=== PATIENT | female | born 1950 | race Caucasian/White ===

== ENCOUNTER → 2021-07-20 10:32 | Outpatient (BNVA) | payer MEDICARE, MEDICAID, SELFPAY | PROVIDERS: Family Provider Nurse Practitioner Family; PCP Family Medicine; Visit Provider Family Medicine | DX: R53.83 Other fatigue (principal); K21.9 Gastro-esophageal reflux disease without esophagitis; I10 Essential (primary) hypertension; H00.14 Chalazion left upper eyelid; M89.49 Other hypertrophic osteoarthropathy, multiple sites; J45.20 Mild intermittent asthma, uncomplicated | CPT/HCPCS: 80053; 80061; 84439; 84443; 85025 ==

== ENCOUNTER 2021-10-28 12:20 | Emergency (ER) | payer MEDICARE, MEDICAID, SELFPAY ==
[2021-10-28] VITALS (11 sets, daily range): BP systolic 122–151; BP diastolic 79–89; PULSE 87–100; RESP 15–20; TEMP 37.1; O2SAT 93–97; BMI 27.2
--- NOTE | 2021-10-28 12:27 | ECG_ITS ---
[facility] Test Date: 2021-10-28 Pat Name: Lisa Turner Department: Room: Gender: Female Online Merchant: : 1950 Requested By: Francheska Hector Order Number: [id number] Dorene MD: Juli Portillo M.D. Measurements Intervals [place] Rate: 83 P: 55 WV: 153 QRS: -29 QRSD: 85 T: 17 QT: 348 QTc: 411 Interpretive Statements SINUS RHYTHM BORDERLINE LEFT AXIS DEVIATION [QRS AXIS < -20] MODERATE ST DEPRESSION [0.05+ mV ST DEPRESSION] No previous ECG available for comparison Electronically Signed On 10-29-2021 20:35:20 CALL CENTER TEAM LEADER by Juli Portillo M.D. [id number]
--- NOTE | 2021-10-28 12:27 | XR_ITS ---
WS: [id number] Portable AP upright chest, 10/28/2021 Clinical Data: dyspnea, cough Comparison: None. Findings: No nodules, masses or effusions are seen. The heart is normal. The pulmonary vascularity is not increased. No pneumonia or pneumothorax is seen. The aortic arch and descending thoracic aorta a re tortuous. XR/XR chest 1V portable [id number] Impression: Atherosclerosis.
[2021-10-28 13:24] LABS: Basophils # 0.1 10^3/uL (0.0-0.1); Basophils % 0.9 %; Eosinophils # 0.8 10^3/uL (0.0-0.8); Eosinophils % 11.5 %; Hemoglobin 14.2 g/dL (11.5-15.3); Lymphocytes # 1.5 10^3/uL (0.8-4.8); Lymphocytes % 22.4 %; Mean Corpuscular HGB Conc 32.3 g/dL (30.0-36.0); Mean Corpuscular Hemoglobin 29.8 pg (28.0-34.0); Mean Corpuscular Volume 92.4 fl (81-99); Mean Platelet Volume 9.1 fL (7.4-10.4); Monocytes # 0.8 10^3/uL (0.2-0.9); Monocytes % 11.4 %; Neutrophils # 3.65 10^3/uL (1.8-7.7); Neutrophils % 53.4 %; Nucleated Red Blood Cells % 0 %; Platelet Count 266 10^3/cmm (130-400); Red Blood Count 4.76 10^6/uL (4.1-5.3); Red Cell Distribution Width 13.7 % (12.1-15.1); White Blood Count 6.8 10^3/uL (4.0-10.0)
--- NOTE | 2021-10-28 13:39 | W.ED.GENADLT ---
HPI - General Adult General: Chief complaint: Shortness of Breath/Dyspnea Stated complaint: SOB/ COUGH Time Seen by Provider: 10/28/21 12:26 History of Present Illness: HPI narrative: Patient is a 70-year-old female with history of asthma, prior TIA presented to the emergency room with complaints of 2 days of worsening wheezing despite using nebulizer at home. Patient tells me that she has mild sore throat and cough for last 2 days. Denies any fever/chills, generalized weakness, muscle pain, diarrhea/melena/hematochezia. No other focal complaints include neurological complaints, urinary complaints, chest pain, or shortness of breath. Onset: 2 days ago Duration:2 days Location:home Severity:moderate Associated symptoms: Reports dyspnea; Deny chest pain, nausea, rash, palpitations or vomiting Review of Systems Const: Denies: fever(s) or chills Eyes: Denies: change in vision ENMT: Denies: mouth pain Card: Denies: chest pain or palpitations Resp: Reports: dyspnea, non-productive cough and wheezing GI: Denies: abdominal pain, nausea, vomiting or diarrhea : Denies: dysuria Musc: Denies: extremity pain Skin/Breast: Denies: rash or new lesions Neuro: Denies: weakness in extremities Psych: Reports: other (Normal mood) Reggie/Lymph: Denies: easy bruising PFSH ED PFSH: Medical History DJD (degenerative joint disease) GERD (gastroesophageal reflux disease) Hypertension Social History Alcohol intake: never Physical Exam Const: COMMON NORMALS: alert HENMT: COMMON NORMALS: atraumatic HEAD & SCALP: atraumatic MOUTH: moist mucous membranes not abnormal Eye: COMMON NORMALS: EOMs intact bilaterally and conjunctivae normal CONJUNCTIVA: Yes conjunctivae normal Neck/C-Spine: COMMON NORMALS: full ROM and supple Resp: COMMON NORMALS: normal respiratory effort AUSCULTATION: other (wheezing b/l) Cardio: COMMON NORMALS: regular rate RATE: regular rate GI: COMMON NORMALS: Soft to palpation and non-tender PALPATION: Yes Soft to palpation Extremity: COMMON NORMALS: full ROM Neuro: SENSORIUM/ORIENTATION: Yes alert MOTOR EXAM: Abnormal motor strength present and Other motor observations present (no focla motor deficits) Psych: COMMON NORMALS: speech normal SPEECH: Yes normal speech MOOD & AFFECT: Yes euthymic mood Course Vital Signs: Vital signs: Vital Signs Temperature 98.8 F 10/28/21 12:27 Pulse Rate 94 10/28/21 14:41 Respiratory Rate 20 H 10/28/21 14:41 Blood Pressure 122/84 10/28/21 14:11 Pulse Oximetry 95 10/28/21 14:41 MDM - General Adult MDM Narrative: Medical decision making narrative: 70-year-old female presents emergency room with complaints of wheezing bilaterally x2 days in setting of cough and sore throat despite nebulizer treatment at home. On exam, patient is satting at 95% with no increased work of breathing. Patient is noted to have wheezing bilaterally X-ray chest x-ray is focal finding. White count 6.8. At the present time, suspect the patient may have acute asthma exacerbation. RSV positive. Ova negative. Patient received breathing treatment with significant improvement symptoms. Patient received DuoNeb and prednisone in the emergency room with improvement in symptoms. Rx prednisone and DuoNeb as needed for wheezing symptoms. Disposition: Discharge. Patient counseled regarding diagnostic impression, treatment plan. Patient given ED strict return precautions to return for continuation, worsening, or development of new symptoms. Instructed to f/u w/ PCP regarding symptoms today. Patient verbalized understanding. Lab Data: Labs: Lab Results 10/28/21 10/28/21 10/28/21 13:00 13:18 13:18 WBC 6.8 10^3/uL 10^3/ uL (4.0-10.0) RBC 4.76 10^6/uL 10^6 /uL (4.1-5.3) Hgb 14.2 g/dL g/dL (11.5-15.3) Hct 44.0 % % (37.0-47.0) MCV 92.4 fl fl (81-99) MCH 29.8 pg pg (28.0-34.0) MCHC 32.3 g/dL g/dL (30.0-36.0) RDW 13.7 % % (12.1-15.1) Plt Count 266 10^3/cmm 10^3 /cmm (130-400) MPV 9.1 fL fL (7.4-10.4) Neut % (Auto) 53.4 % % Lymph % (Auto) 22.4 % % [place] % (Auto) 11.4 % % Eos % (Auto) 11.5 % % Baso % (Auto) 0.9 % % Neut # (Auto) 3.65 10^3/uL 10^3 /uL (1.8-7.7) Lymph # (Auto) 1.5 10^3/uL 10^3/ uL (0.8-4.8) [place] # (Auto) 0.8 10^3/uL 10^3/ uL (0.2-0.9) Eos # (Auto) 0.8 10^3/uL 10^3/ uL (0.0-0.8) Baso # (Auto) 0.1 10^3/uL 10^3/ uL (0.0-0.1) Nucleated RBC % (a uto) 0 % % Nucleated RBCs # 0.0 /100WBC /100W BC Sodium 140 mmol/L mmol/L (136-145) Potassium 4.0 mmol/L mmol/L (3.5-5.1) Chloride 104 mmol/L mmol/L (98-107) Carbon Dioxide 28 mmol/L mmol/L (22-29) Anion Gap 12.0 (5-19) BUN 7 mg/dL L mg/dL (8-23) Creatinine 0.6 mg/dL mg/dL (0.5-0.9) GFR Calculation 98.8 mL/min mL/mi n (90-130) Glucose 87 mg/dL mg/dL (65-115) Calculated Osmolal ity 287 mOsm/kg mOsm/ kg (285-295) Calcium 9.4 mg/dL mg/dL (8.5-10.5) Coronavirus 229E ( PCR) Not detected (NOT DETECT) RSV Type A (PCR) RSV Type B (PCR) SARS-CoV-2 (PCR) Not detected (NOT DETECT) 10/28/21 14:57 WBC RBC Hgb Hct MCV MCH MCHC RDW Plt Count MPV Neut % (Auto) Lymph % (Auto) [place] % (Auto) Eos % (Auto) Baso % (Auto) Neut # (Auto) Lymph # (Auto) [place] # (Auto) Eos # (Auto) Baso # (Auto) Nucleated RBC % (a uto) Nucleated RBCs # Sodium Potassium Chloride Carbon Dioxide Anion Gap BUN Creatinine GFR Calculation Glucose Calculated Osmolal ity Calcium Coronavirus 229E ( PCR) RSV Type A (PCR) Not detected (NOT DETECT) RSV Type B (PCR) Detected A (NOT DETECT) SARS-CoV-2 (PCR) Imaging Data^: Other Imaging: Radiologist's impression: [address] [id number] ReportSigned Patient: Lisa Turner #: [id number]: 1950cct#:[id number]/Sex: 70 / FADM Date: 10/28/21Loc: ERRoom/Bed:Attending Dr: Ordering Provider/Ordering MD: Francheska Hector MD Date of Service: 10/28/21 Procedure(s): XR chest 1V portable [id number] Accession Number(s): [id number] Report Number: [id number] WS: [id number] Portable AP upright chest, 10/28/2021 Clinical Data: dyspnea, cough Comparison: None. Findings: No nodules, masses or effusions are seen. The heart is normal. The pulmonary vascularity is not increased. No pneumonia or pneumothorax is seen. The aortic arch and descending thoracic aorta are tortuous. XR/XR chest 1V portable [id number] Impression: Atherosclerosis. Dictated By:Luba Sepulveda MDSigned By:Luba Sepulveda MDSigned Date/Time:10/28/21 1256DD/ 1255 Discharge Plan Discharge Patient Disposition: Home Clinical Impression: Wheezing, Acute asthma exacerbation Condition: Stable Prescriptions: New albuterol sulfate 90 mcg/actuation HFA aerosol inhaler 2 inh inhalation Q4H PRN (Reason: shortness of breath or wheezing) 5 Days Qty: 6.7 RF: 0 prednisone 50 mg tablet 50 mg PO DAILY 5 Days RF: 0 No Action albuterol sulfate [Ventolin HFA] 90 mcg/actuation HFA aerosol inhaler 2 inh inhalation Q6H PRN (Reason: sob) Qty: 8.5 RF: 6 albuterol sulfate 2.5 mg /3 mL (0.083 %) solution for nebulization 2.5 mg inhalation QID PRN (Reason: sob) Qty: 180 RF: 11 cetirizine [Zyrtec] 10 mg tablet 10 mg PO DAILY PRN (Reason: allergy) Qty: 90 RF: 3 fluticasone propionate 50 mcg/actuation spray,suspension 1 spray intranasal .at HS PRN (Reason: allergy symptoms) Qty: 16 RF: 11 omeprazole 20 mg capsule,delayed release(DR/EC) 20 mg PO DAILY Qty: 90 RF: 3 azithromycin [Zithromax Z-Connor] 250 mg tablet 250 mg PO DAILY 7 Days Qty: 7 RF: 0 prednisone 5 mg tablets,dose pack See Rx Instructions PO PER PKG DIR Qty: 21 RF: 0 carvedilol [Coreg] 3.125 mg tablet 3.125 mg PO BID Qty: 60 RF: 5 Discharge Orders: Discharge ED (Routine); Ordered 10/28/21 Ordered By: Francheska Hector Referrals: Konstantin Lawson DO [Primary Care Provider] - Discharge Diet: Advance as tolerated Discharge Activity: Resume usual activity Activity Restrictions/Additional Instructions: Come back to the emergency room if your symptoms worsen, have any shortness of breath, fever/chills, dehydration, inability tolerate p.o., any difficulty breathing, or any new or concerning complaints. Coding Level of Care Code ED Cryptographic Technician for Chg Fwd Exam Comprehensive
[2021-10-28 13:45] LABS: Blood Urea Nitrogen 7 mg/dL (8-23); Calcium 9.4 mg/dL (8.5-10.5); Carbon Dioxide 28 mmol/L (22-29); Chloride 104 mmol/L (98-107); Glomerular Filtration Rate 98.8 mL/min (90-130); Glucose 87 mg/dL (65-115); Osmolality Calculated 287 mOsm/kg (285-295); Sodium 140 mmol/L (136-145)
[2021-10-28] MEDS: ipratropium-albuterol 3 mL Neb INHALATION ×3 (14:23→15:38)
[2021-10-28 14:56] LABS: Adenovirus Not Detected (NOT DETECT); Chlamydia Pneumoniae Not Detected (NOT DETECT); Coronavirus 229E,HKU1,NL63,OC4 Not Detected (NOT DETECT); Human Metapneumovirus Not Detected (NOT DETECT); Human Rhinovirus/Enterovirus Not Detected (NOT DETECT); Influenza A Not Detected (NOT DETECT); Influenza A H1 Not Detected (NOT DETECT); Influenza A H1-2009 Not Detected (NOT DETECT); Influenza A H3 Not Detected (NOT DETECT); Influenza B Not Detected (NOT DETECT); Mycoplasma Pneumoniae Not Detected (NOT DETECT); Parainfluenza Virus Type 1 Not Detected (NOT DETECT); Parainfluenza Virus Type 2 Not Detected (NOT DETECT); Parainfluenza Virus Type 3 Not Detected (NOT DETECT); Parainfluenza Virus Type 4 Not Detected (NOT DETECT); Respiratory Syncytial Virus A Not Detected (NOT DETECT); Respiratory Syncytial Virus B Detected (NOT DETECT); SARS-COV-2 Not Detected (NOT DETECT)
[2021-10-28 14:58] LABS: Respiratory Syncytial Virus A Not Detected (NOT DETECT); Respiratory Syncytial Virus B Detected (NOT DETECT); Results from Genmark
== END 2021-10-28 15:52 | disposition home or self-care (01) ==
PROVIDERS: Emergency Provider Emergency Medicine; PCP Family Medicine
DX: J45.901 Unspecified asthma with (acute) exacerbation (principal); K21.9 Gastro-esophageal reflux disease without esophagitis; I10 Essential (primary) hypertension
CPT/HCPCS: 71045; 80048; 85025; 87635; 87801; 93005; 94640; 96374; 99284; J2930

== ENCOUNTER → 2021-12-21 11:36 | Outpatient (BNVA) | payer MEDICARE, MEDICAID, SELFPAY | PROVIDERS: PCP Family Medicine; Visit Provider Family Medicine | DX: J32.9 Chronic sinusitis, unspecified (principal); J40 Bronchitis, not specified as acute or chronic; J45.20 Mild intermittent asthma, uncomplicated | CPT/HCPCS: 71046 ==

== ENCOUNTER → 2022-02-19 10:00 | Outpatient (BNVA) | payer MEDICARE, MEDICAID, SELFPAY | PROVIDERS: PCP Family Medicine; Visit Provider Internal Medicine Pulmonary Disease | DX: J45.20 Mild intermittent asthma, uncomplicated (principal); K21.9 Gastro-esophageal reflux disease without esophagitis; I10 Essential (primary) hypertension; R06.02 Shortness of breath | CPT/HCPCS: 36415; 82785; 85025; 86003; 99204 ==

== ENCOUNTER → 2022-04-02 09:15 | Outpatient (BNVA) | payer MEDICARE, MEDICAID, SELFPAY | PROVIDERS: PCP Family Medicine; Visit Provider Internal Medicine Pulmonary Disease | DX: J45.20 Mild intermittent asthma, uncomplicated (principal); K21.9 Gastro-esophageal reflux disease without esophagitis; I10 Essential (primary) hypertension | CPT/HCPCS: 99214 ==

== ENCOUNTER 2022-09-13 21:18 | Emergency (ER) | payer MEDICARE, MEDICAID, SELFPAY ==
[2022-09-13 21:20] VITALS: BP 150/93; PULSE 84; RESP 17; TEMP 36.8; O2SAT 99; BMI 31.3
--- NOTE | 2022-09-13 21:28 | ECG_ITS ---
[facility] Test Date: 2022-09-13 Pat Name: Lisa Turner Department: Room: Gender: Female Drying Machine Receiver: : 1950 Requested By: Serafin Johns Order Number: [id number] Dorene MD: Kaushik Rajput M.D. Measurements Intervals [place] Rate: 72 P: 49 AR: 160 QRS: -16 QRSD: 84 T: 18 QT: 398 QTc: 438 Interpretive Statements SINUS RHYTHM MODERATE ST DEPRESSION [0.05+ mV ST DEPRESSION] Nonspecific T wave changes Compared to ECG 10/28/2021 12:44:13 No significant changes Electronically Signed On 09-14-2022 20:34:09 BOOKING OFFICER by Kaushik Rajput M.D. [id number]
--- NOTE | 2022-09-13 21:38 | ED_ITS ---
HPI - Nausea/Vomiting/Diarrhea General: Chief complaint: Nausea/Vomiting/Diarrhea Stated complaint: nausea, vomiting, diarrhea Time Seen by Provider: 09/13/22 21:20 Source: patient and EMS Mode of arrival: EMS Limitations: no limitations History of Present Illness: 71-year-old female states that since 6:30 PM she has been having vertigo. She states its much worse with any movement she states she has had nausea and vomiting along with some diarrhea. States that she is given Zofran in route and has had some improvement does improve with rest as well. Denies any headache denies any weakness in any extremities denies any change in vision. Associated nausea: Yes Associated symtoms: Reports nausea; Denies chest pain or dysuria Review of Systems Const: Denies: fever(s), chills, body aches or change in appetite Eyes: Denies: blurry vision or eye discomfort ENMT: Denies: throat pain or dental pain Card: Denies: chest pain Resp: Denies: dyspnea GI: Reports: nausea and vomiting : Denies: dysuria Musc: Denies: neck pain or back pain Skin/Breast: Denies: rash Neuro: Reports: vertigo Psych: Denies: depression Reggie/Lymph: Denies: easy bruising All/Imm: Denies: urticaria PFSH ED PFSH: Medical History DJD (degenerative joint disease) GERD (gastroesophageal reflux disease) Hypertension Social History Smoking and tobacco status: never smoked Second hand smoke exposure: Yes Alcohol intake: never Physical Exam Const: COMMON NORMALS: no acute distress, patient oriented x3 and healthy appearing HENMT: COMMON NORMALS: normocephalic and atraumatic HEAD & SCALP: normo cephalic and atraumatic Eye: COMMON NORMALS: Equal, round and reactive pupils present and EOMs intact bilaterally PUPIL: Yes Equal, round and reactive pupils present Neck/C-Spine: COMMON NORMALS: full ROM and supple Chest: COMMONS NORMALS: normal inspection of the chest and normal palpation of entire chest wall Resp: COMMON NORMALS: normal respiratory effort, No retractions, No use of accessory muscles and clear to auscultation bilaterally AUSCULTATION: clear to auscultation bilaterally Cardio: COMMON NORMALS: regular rate, regular rhythm and No murmurs present (Cardio) RATE: regular rate RHYTHM: regular rhythm GI: COMMON NORMALS: Normal to inspection, nondistended, normoactive bowel sounds present, Soft to palpation, non-tender and no masses PALPATION: Yes Soft to palpation Extremity: COMMON NORMALS: normal to inspection and full ROM Neuro: COMMON NORMALS: patient oriented x3, moves all extremities and no focal motor deficits Psych: COMMON NORMALS: mental status grossly normal, Normal thought process present and cooperative THOUGHT PROCESS: Normal thought process present Skin: COMMON NORMALS: no rashes or lesions noted and no wounds GENERAL SKIN EXAM: no rashes or lesions noted Course Vital Signs: Vital signs: Vital Signs Temperature 98.2 F 09/13/22 21:20 Pulse Rate 79 09/13/22 22:55 Respiratory Rate 16 09/13/22 22:55 Blood Pressure 125/75 09/13/22 22:55 Pulse Oximetry 99 09/13/22 22:55 Oxygen Delivery Me thod 09/13/22 21:20 MDM - Nausea/Vomiting/Diarrhea Medical Decision Making Patient presents here with vertigo likely peripheral in nature its resolved here with meclizine patient is able to ambulate without any difficulties she has been able to tolerate p.o. as well blood work is normal we will prescribe meclizine and Zofran for home she is to follow-up with her PCP and return if worsening she has no signs of a stroke. Lab Data 09/13/22 21:37 09/13/22 21:37 Laboratory Results WBC 12.0 10^3/uL (4.0-10.0) H 09/13/22 21:37 RBC 4.70 10^6/uL (4.1-5.3) 09/13/22 21:37 Hgb 13.9 g/dL (11.5-15.3) 09/13/22 21:37 Hct 43.5 % (37.0-47.0) 09/13/22 21:37 MCV 92.6 fl (81-99) 09/13/22 21:37 MCH 29.6 pg (28.0-34.0) 09/13/22 21:37 MCHC 32.0 g/dL (30.0-36.0) 09/13/22 21:37 RDW 13.2 % (12.1-15.1) 09/13/22 21:37 Plt Count 258 10^3/cmm (130-400) 09/13/22 21:37 MPV 9.7 fL (7.4-10.4) 09/13/22 21:37 Neut % (Auto) 75.0 % 09/13/22 21:37 Lymph % (Auto) 17.0 % 09/13/22 21:37 [place] % (Auto) 6.5 % 09/13/22 21:37 Eos % (Auto) 0.6 % 09/13/22 21:37 Baso % (Auto) 0.6 % 09/13/22 21:37 Neut # (Auto) 9.00 10^3/uL (1.8-7.7) H 09/13/22 21:37 Lymph # (Auto) 2.0 10^3/uL (0.8-4.8) 09/13/22 21:37 [place] # (Auto) 0.8 10^3/uL (0.2-0.9) 09/13/22 21:37 Eos # (Auto) 0.1 10^3/uL (0.0-0.8) 09/13/22 21:37 Baso # (Auto) 0.1 10^3/uL (0.0-0.1) 09/13/22 21:37 Nucleated RBC % (auto) 0 % 09/13/22 21:37 Nucleated RBCs # 0.0 /100WBC 09/13/22 21:37 Sodium 139 mmol/L (136-145) 09/13/22 23:17 Potassium 3.2 mmol/L (3.5-5.1) L 09/13/22 23:17 Chloride 101 mmol/L (98-107) 09/13/22 23:17 Carbon Dioxide 25 mmol/L (22-29) 09/13/22 23:17 Anion Gap 16.2 (5-19) 09/13/22 23:17 BUN 10 mg/dL (8-23) 09/13/22 23:17 Creatinine 0.8 mg/dL (0.5-0.9) 09/13/22 23:17 GFR Calculation Not Reportable 09/13/22 23:17 Glucose 120 mg/dL (65-115) H 09/13/22 23:17 Calculated Osmolality 288 mOsm/kg (285-295) 09/13/22 23:17 Calcium 10.4 mg/dL (8.5-10.5) 09/13/22 23:17 Total Bilirubin 0.4 mg/dL (0.15-1.2) 09/13/22 23:17 AST 17 U/L (0-32) 09/13/22 23:17 ALT 14 U/L (0-33) 09/13/22 23:17 Alkaline Phosphatase 99 U/L (35-105) 09/13/22 23:17 Total Protein 7.7 g/dL (6.6-8.7) 09/13/22 23:17 Albumin 4.5 g/dL (3.5-5.2) 09/13/22 23:17 Globulin 3.2 g/dL (1.3-4.6) 09/13/22 23:17 Lipase 38 U/L (13-60) 09/13/22 23:17 EKG Data EKG 1: I personally reviewed and interpreted this EKG as follows: EKG interpretation date: 09/13/22 EKG interpretation time: 21:41 Interpretation: nsr hr [address] or t wave ab normalities qrs 84 qtc 423 Discharge Plan Discharge Patient Disposition: Home Clinical Impression: Vertigo, Vomiting Condition: Stable Prescriptions: New ondansetron 4 mg tablet,disintegrating 4 mg PO Q6H PRN (Reason: nausea and vomiting) Qty: 14 0RF meclizine 25 mg tablet 25 mg PO TID PRN (Reason: dizziness) Qty: 20 0RF No Action albuterol sulfate [Ventolin HFA] 90 mcg/actuation HFA aerosol inhaler 2 inh inhalation Q6H PRN (Reason: sob) Qty: 8.5 6RF albuterol sulfate 2.5 mg /3 mL (0.083 %) solution for nebulization 2.5 mg inhalation QID PRN (Reason: sob) Qty: 180 11RF omeprazole 20 mg capsule,delayed release(DR/EC) 20 mg PO DAILY Qty: 90 3RF carvedilol [Coreg] 3.125 mg tablet 3.125 mg PO BID Qty: 180 3RF Rx Instructions: must administer with a meal/food Discharge Orders: Discharge ED (Routine); Ordered 09/13/22 Ordered By: Serafin Johns Referrals: Konstantin Lawson DO [Primary Care Provider] - 1-3 days Discharge Diet: Advance as tolerated Discharge Activity: Resume usual activity Patient Instructions: Vertigo (ED) Coding Level of Care Code ED Pipe Threading Machine Operator for Chg Fwd Exam Comprehensive
[2022-09-13 21:45] LABS: Basophils # 0.1 10^3/uL (0.0-0.1); Basophils % 0.6 %; Eosinophils # 0.1 10^3/uL (0.0-0.8); Eosinophils % 0.6 %; Hematocrit 43.5 % (37.0-47.0); Hemoglobin 13.9 g/dL (11.5-15.3); Mean Corpuscular Hemoglobin 29.6 pg (28.0-34.0); Mean Corpuscular Volume 92.6 fl (81-99); Mean Platelet Volume 9.7 fL (7.4-10.4); Monocytes # 0.8 10^3/uL (0.2-0.9); Monocytes % 6.5 %; Nucleated Red Blood Cells % 0 %; Platelet Count 258 10^3/cmm (130-400); Red Cell Distribution Width 13.2 % (12.1-15.1)
[2022-09-13] MEDS: meclizine 25 mg tablet 50 MG PO (21:55)
[2022-09-13] MEDS: ondansetron 2 mg/ML SDV 2 mL 4 MG IVP (21:55)
[2022-09-13] MEDS: sodium chloride 0.9% 1,000 ML 999 ML IV (21:55)
[2022-09-13 22:55] VITALS: BP 125/75; PULSE 79; RESP 16; O2SAT 99
[2022-09-13 23:41] LABS: Alanine Aminotransferase 14 U/L (0-33); Albumin Level 4.5 g/dL (3.5-5.2); Alkaline Phosphatase 99 U/L (35-105); Anion Gap 16.2 (5-19); Aspartate Amino Transferase 17 U/L (0-32); Blood Urea Nitrogen 10 mg/dL (8-23); Calcium 10.4 mg/dL (8.5-10.5); Carbon Dioxide 25 mmol/L (22-29); Chloride 101 mmol/L (98-107); Globulin 3.2 g/dL (1.3-4.6); Glucose 120 mg/dL (65-115); Lipase 38 U/L (13-60); Osmolality Calculated 288 mOsm/kg (285-295); Potassium 3.2 mmol/L (3.5-5.1); Sodium 139 mmol/L (136-145); Total Bilirubin 0.4 mg/dL (0.15-1.2); Total Protein 7.7 g/dL (6.6-8.7)
[2022-09-13 23:56] VITALS: BP 122/81; PULSE 81; RESP 16; O2SAT 94
== END 2022-09-13 23:55 | disposition home or self-care (01) ==
PROVIDERS: Emergency Provider Emergency Medicine; PCP Family Medicine
DX: R42 Dizziness and giddiness (principal); R11.11 Vomiting without nausea; I10 Essential (primary) hypertension; Z77.22 Contact with and (suspected) exposure to environmental tobacco smoke (acute) (chronic)
CPT/HCPCS: 80053; 83690; 85025; 93005; 96361; 96374; 99284; J2405; J7030; J8597

== ENCOUNTER → 2023-05-12 15:44 | Outpatient (BNVA) | payer MEDICARE, MEDICAID, SELFPAY | PROVIDERS: PCP Family Medicine; Visit Provider Nurse Practitioner Family | DX: I10 Essential (primary) hypertension (principal); L73.1 Pseudofolliculitis barbae; R42 Dizziness and giddiness | CPT/HCPCS: 80053; 80061; 84443; 85025 ==

== ENCOUNTER 2024-01-07 18:19 | Emergency (ER) | payer MEDICARE, MEDICAID, SELFPAY ==
[2024-01-07 18:22] VITALS: BP 116/85; PULSE 91; RESP 14; TEMP 36.7; O2SAT 97; BMI 27.2
--- NOTE | 2024-01-07 18:38 | CTR_ITS ---
PROCEDURE INFORMATION: Exam: CT Pelvis Without Contrast; Skeletal Exam date and time: 01/07/2024 6:51 PM Age: 73 years old Clinical indication: Hip pain; Bilateral; Prior surgery; Surgery date: 6+ months; Surgery type: Hysterectomy; Additional info: Fall 10d ago left hip and buttock pain TECHNIQUE: Imaging protocol: Computed tomography of the pelvis without contrast. Exam focused on the skeleton. Radiation optimization: All CT scans at this facility use at least one of these dose optimization techniques: automated exposure control; mA and/or kV adjustment per patient size (includes targeted exams where dose is matched to clinical indication); or iterative reconstruction. COMPARISON: No relevant prior studies available. RADIATION DOSE METRICS: Total DLP (mGy-cm): 329.73 FINDINGS: Bones/joints: There is subtle buckling of the anterior cortex of the C1 coccygeal body with mild presacral edema suggestive of a nondisplaced fracture (for example, images 40 7-48 of series 7). The sacrum is intact. Pelvic ring is otherwise intact. 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 There is degeneration of the pubic symphysis. Soft tissues: Mild presacral/precoccygeal edema without fluid collection or hematoma. Pelvic musculature is grossly intact. CT/CT bony pelvis [id number] IMPRESSION: 1. Acute nondisplaced coccygeal fracture.
--- NOTE | 2024-01-07 18:39 | ED_ITS ---
HPI - Back Pain/Injury General: Chief Complaint: Back Pain/Injury Stated Complaint: JAYCOB HIP PAIN S/P FLL Time Seen by Provider: 01/07/24 18:22 History of Present Illness: 73-year-old female presenting with mainl y left lateral and posterior hip pain, buttock pain, and extreme low back pain. It is nonradicular. Pain has been present since her dog knocked her over 10 days ago. It seems to be getting worse. Worse with taking a step, changing directions, and while trying to lie i n bed. No fever. No abdominal pain. No vomiting or diarrhea. She has not had pain like this before. Associated symptoms: Deny abdominal pain, chills, fever(s), nausea or vomiting Review of Systems Const: Denies: fever(s) or chills Card: Denies: chest pain Resp: Denies: dyspnea GI: Denies: abdominal pain, nausea, vomiting or diarrhea : Denies: flank pain or difficulty voiding Neuro: Denies: numbness in extremities or sensory changes PFS ED PFSH: Medical History GERD (gastroesophageal reflux disease) DJD (degenerative joint disease) Hypertension Social History Smoking and tobacco/nicotine status: never used tobacco/nicotine Second hand smoke exposure: Yes Alcohol intake: never Physical Exam Const: COMMON NORMALS: no acute distress GENERAL APPEARANCE: cooperative; not ill appearing and not frail appearing HENMT: COMMON NORMALS: normocephalic, atraumatic and Normal external nose present HEAD & SCALP: normocephalic and atraumatic FACE & SINUS: normal facial exam and face symmetric NOSE: Normal external nose present Eye: COMMON NORMALS: Equal, round and reactive pupils present and EOMs intact bilaterally PUPIL: Yes Equal, round and reactive pupils present Neck/C-Spine: GENERAL: Yes trachea midline Chest: CHEST: Yes Symmetrical chest wall rise Resp: COMMON NORMALS: normal respiratory effort, No retractions, No use of accessory muscles and clear to auscultation bilaterally AUSCULTATION: clear to auscultation bilaterally Cardio: COMMON NORMALS: regular rate and regular rhythm RATE: regular rate RHYTHM: regular rhythm GI: COMMON NORMALS: Normal to inspection, nondistended, normoactive bowel sounds present : COMMON NORMALS: Yes no CVA tenderness BLADDER/KIDNEY EXAM: Yes no CVA tenderness Back/Pelvis: COMMON NORMALS: no CVA tenderness OTHER: Examination of the lumbar spine and pelvis reveals no deformity. There is tenderness to palpation over the L5-S1 junction, mainly on the left. There is left SI joint tenderness, some buttock tenderness, and lateral hip tenderness. No groin tenderness. Logroll testing causes pain posteriorly, but not on the groin. Straight leg raise test is negative. Sensation is intact. Pulses are normal. Extremity: COMMON NORMALS: no pedal edema Neuro: JAYNA COMA SCALE: document GCS findings Nunez coma scale eye opening: Spontaneous Nunez coma scale verbal response: Orientated Jayna coma scale motor response: Obey commands Jayna coma scale total score: 15 SENSORY EXAM: Yes extremities (intact) Psych: COMMON NORMALS: speech normal SPEECH: Yes normal speech Skin: COMMON NORMALS: no rashes or lesions noted GENERAL SKIN EXAM: no rashes or lesions noted Course Vital Signs: Vital signs: Vital Signs Temperature 98.1 F 01/07/24 18:22 Pulse Rate 91 01/07/24 18:22 Respiratory Rate 16 01/07/24 18:44 Blood Pressure 116/85 01/07/24 18:22 Pulse Oximetry 98 01/07/24 18:44 Oxygen Delivery Me thod Room Air 01/07/24 18:22 MDM - Back Pain/Injury Medical Decision Making 73-year-old lady with pelvic pain after a fall [address] of the pelvis shows she has acute nondisplaced coccygeal fracture. She will be treated with pain medication. Hemorrhoidal pillow may help. Ice. She has no neurological findings. Close outpatient follow-up. She was counseled on her diagnosis and treatment plan. Labs Radiology Impressions Pelvis CT 01/07/24 18:38 IMPRESSION: 1. Acute nondisplaced coccygeal fracture. All radiology interpretation(s) finalized by discharge Discharge Plan Discharge Patient Disposition: Home Clinical Impression: Closed fracture of coccyx Condition: Stable Prescriptions: New hydrocodone-acetaminophen 5-325 mg tablet 1 tab PO Q8H PRN (Reason: pain) Qty: 10 0RF No Action mupirocin 2 % ointment 1 applic topical TID 7 Days Qty: 22 1RF meclizine 25 mg tablet 25 mg PO TID PRN (Reason: dizziness or vertigo) Qty: 30 0RF triamcinolone acetonide 0.5 % ointment 1 applic topical BID Qty: 15 0RF ondansetron 4 mg tablet,disintegrating 4 mg PO Q6H PRN (Reason: nausea and vomiting) Qty: 14 0RF omeprazole 20 mg capsule,delayed release(DR/EC) 20 mg PO DAILY Qty: 90 1RF albuterol sulfate 2.5 mg /3 mL (0.083 %) solution for nebulization 2.5 mg inhalation QID PRN (Reason: sob) Qty: 180 11RF albuterol sulfate [Ventolin HFA] 90 mcg/actuation HFA aerosol inhaler 2 inh inhalation Q6H PRN (Reason: sob) Qty: 8.5 6RF carvedilol 3.125 mg tablet See Rx Instructions .ROUTE .COMPLEX Qty: 180 1RF Dose Instruction: TAKE ONE TABLET BY MOUTH TWICE DAILY MUST ADMINISTER WITH A MEAL/FOOD Rx Instructions: TAKE ONE TABLET BY MOUTH TWICE DAILY MUST ADMINISTER WITH A MEAL/FOOD fluticasone furoate-vilanterol [Breo Ellipta] 100-25 mcg/dose blister with device 1 inh inhalation DAILY Qty: 60 6RF Discharge Orders: Discharge ED (Routine); Ordered 01/07/24 Ordered By: Omer Malhotra Referrals: Konstantin Lawson DO [Primary Care Provider] - 1-3 days Patient Instructions: Coccyx Injury (ED), Opioid Safety, Pain Management Activity Restrictions/Additional Instructions: Obtain a doughnut pillow as we discussed in the emergency department. Pain medication as directed. You may use Tylenol or ibuprofen for less severe pain. Ice may help. See your doctor this coming week. Coding Level of Care Code ED Technology Education Instructor for Nica Dong
[2024-01-07 18:44] VITALS: RESP 16; O2SAT 98
[2024-01-07] MEDS: oxyCODONE-APAP 5-325 mg Tablet 1 TAB PO (18:44)
--- NOTE | 2024-01-07 20:45 | PC.NURSE ---
Pt. was given paper script for 2 tablets of pain medication, so she could get it filled while waiting for her home pharmacy to open.
== END 2024-01-07 20:46 | disposition home or self-care (01) ==
PROVIDERS: Emergency Provider Emergency Medicine; PCP Family Medicine
DX: S32.2XXA Fracture of coccyx, initial encounter for closed fracture (principal); I10 Essential (primary) hypertension; Z77.22 Contact with and (suspected) exposure to environmental tobacco smoke (acute) (chronic); W54.1XXA Struck by dog, initial encounter
CPT/HCPCS: 72192; 99284

== ENCOUNTER → 2024-02-27 09:00 | Outpatient (BNVA) | payer MEDICARE, MEDICAID, SELFPAY | PROVIDERS: PCP Nurse Practitioner Family; Visit Provider Nurse Practitioner Family | DX: M25.562 Pain in left knee (principal) | CPT/HCPCS: 73562 ==

== ENCOUNTER → 2024-03-06 11:00 | Outpatient (BNVA) | payer MEDICARE, MEDICAID, SELFPAY | PROVIDERS: PCP Nurse Practitioner Family; Visit Provider Nurse Practitioner Family | DX: I10 Essential (primary) hypertension (principal); K21.9 Gastro-esophageal reflux disease without esophagitis | CPT/HCPCS: 80053; 80061 ==

== ENCOUNTER 2024-04-05 06:00 | Outpatient (CLI) | payer MEDICARE, MEDICAID, SELFPAY | END 2024-04-05 23:59 | disposition home or self-care (01) | LOC: SPT 04-06 10:25 | PROVIDERS: Visit Provider Physician Assistant | DX: Z46.89 Encounter for fitting and adjustment of other specified devices (principal); S83.8X2D Sprain of other specified parts of left knee, subsequent encounter; X58.XXXD Exposure to other specified factors, subsequent encounter; M17.12 Unilateral primary osteoarthritis, left knee; M25.562 Pain in left knee | CPT/HCPCS: 97760; L1812 ==

== ENCOUNTER → 2024-04-05 11:02 | Outpatient (BNVA) | payer MEDICARE, MEDICAID, SELFPAY | PROVIDERS: PCP Nurse Practitioner Family; Referring Provider Nurse Practitioner Family; Visit Provider Physician Assistant | DX: S83.8X2A Sprain of other specified parts of left knee, initial encounter; W19.XXXA Unspecified fall, initial encounter; M17.12 Unilateral primary osteoarthritis, left knee | CPT/HCPCS: 73560; 73565; 99203 ==

== ENCOUNTER → 2024-05-04 09:57 | Outpatient (BNVA) | payer MEDICARE, MEDICAID, SELFPAY | PROVIDERS: PCP Family Medicine; Visit Provider Nurse Practitioner Family | DX: L57.0 Actinic keratosis (principal); L81.4 Other melanin hyperpigmentation; D22.4 Melanocytic nevi of scalp and neck; L82.1 Other seborrheic keratosis; L57.8 Other skin changes due to chronic exposure to nonionizing radiation | CPT/HCPCS: 17000; 99203 ==

== ENCOUNTER → 2024-11-13 09:15 | Outpatient (BNVA) | payer MEDICARE, MEDICAID, SELFPAY | PROVIDERS: PCP Nurse Practitioner Family; Visit Provider Nurse Practitioner Family | DX: R41.3 Other amnesia (principal); I10 Essential (primary) hypertension; Z68.27 Body mass index [BMI] 27.0-27.9, adult; K21.9 Gastro-esophageal reflux disease without esophagitis | CPT/HCPCS: 80053; 80061; 82306; 82607; 84443; 85025 ==

== ENCOUNTER → 2025-05-15 13:00 | Outpatient (BNVA) | payer MEDICARE, MEDICAID, SELFPAY | PROVIDERS: PCP Nurse Practitioner Family; Visit Provider Nurse Practitioner Family | DX: Z13.6 Encounter for screening for cardiovascular disorders (principal) | CPT/HCPCS: 80053; 80061; 83735 ==

== ENCOUNTER 2025-05-28 13:29 | Outpatient (CLI) | payer OTHER, MEDICAID, SELFPAY ==
--- NOTE | 2025-05-28 14:00 | XR_ITS ---
WS: [id number] DEXA (DUAL ENERGY X-RAY ABSORPTIOMETRY) Bone mineral density was performed using a [employer] machine. HISTORY: Z78.0 - Asymptomatic menopausal state COMPARISON: None available. Lumbar spine BMD (L1-L4): 0.959 g/cm2 T score: -1.8 Z score: -0.1 Total hip BMD: Left: 0.699 g/cm2. T score: -2.5 Z score: -0.7 Right: 0.706 g/cm2. T score: -2.4 Z score: -0.7 10 year probability of a major osteoporotic fracture is 35.7%. XR/XR DEXA axial skeleton* 91734 IMPRESSION: OSTEOPOROSIS based upon the WHO classification for females.
== END 2025-05-28 13:30 | disposition home or self-care (01) ==
LOC: RAD 13:32
PROVIDERS: PCP Nurse Practitioner Family; Visit Provider Nurse Practitioner Family
DX: Z13.820 Encounter for screening for osteoporosis (principal); Z78.0 Asymptomatic menopausal state; M81.0 Age-related osteoporosis without current pathological fracture
CPT/HCPCS: 77080

== ENCOUNTER → 2025-06-05 14:40 | Outpatient (BNVA) | payer OTHER, MEDICAID, SELFPAY | PROVIDERS: PCP Nurse Practitioner Family; Visit Provider Nurse Practitioner Family | DX: Z13.820 Encounter for screening for osteoporosis (principal) | CPT/HCPCS: 82310 ==

== ENCOUNTER 2025-08-21 14:06 | Emergency (ER) | payer OTHER, MEDICAID, SELFPAY ==
--- NOTE | 2025-08-21 14:07 | CT_ITS ---
WS: [id number] CT HEAD NONCONTRAST HISTORY: Symptoms of acute stroke TECHNIQUE: Contiguous axial imaging performed through the brain. Bone and soft tissue windows. Sagittal and coronal reformats reviewed. All CT scans at [facility] use at least one of these dose optimization techniques: automated exposure control; mA and/or kV adjustment per patient size (includes targeted exams where dose is matched to clinical indication); or iterative reconstruction. DLP: 974.78 mGy COMPARISON: None available. No acute intracranial hemorrhage, midline shift or mass effect. No atrophy or prior infarcts or herniation. Very mild small vessel changes. Small lacunar infarct RIGHT occipital lobe. Ventricles: Normal size with no hydrocephalus. No inferior displacement of the cerebellar tonsils. Paranasal sinuses: As visualized are clear. Mastoid air cells: Well pneumatized. Calvarium and scalp: Skull is intact with no soft tissue edema or swelling. CT/CT head thrombolytic 49452 IMPRESSION: 1. No acute intracranial hemorrhage or edema. 2. Very minimal small vessel changes. 3. Remote lacunar infarct RIGHT occipital lobe.
--- NOTE | 2025-08-21 14:08 | ECG_ITS ---
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 Measurements Intervals [place] Rate: 67 P: 60 CT: 154 QRS: -27 QRSD: 88 T: 5 QT: 384 QTc: 406 Interpretive Statements SINUS RHYTHM SEPTAL MYOCARDIAL INFARCTION , PROBABLY OLD [40+ ms Q WAVE IN V1/V2] MINOR ST DEPRESSION AND T WAVE FLATTENING Compared to ECG 09/13/2022 21:41:06 NO SIGNIFICANT CHANGE Electronically Signed On 08-22-2025 19:44:32 CDT by Levy Spencer M.D. [email or web address]
[2025-08-21 14:12] VITALS: BP 136/81; PULSE 76; O2SAT 98
--- OUTSIDE RECORDS SUMMARY | 2025-08-21 14:17 | XMS_ITS | Encounter Summary ---
Author Organization [facility] Address [address] [place] [address] Care Team Providers Care Intake Clerk Name Role Phone Non-Staff, Physician Primary Care Provider Unava ilable Encounter Details Date Type Department Care Team (Latest Contact Info) Description 06/30/2006 Outpatient Historical [facility] [address] [phone] Jose R Hackett MD [address] [phone] Diarrhea (Primary Dx) Social History Tobacco Use Types Packs/Day Years Used Date Smoking Tobacco: Never Assessed Comments Unknown Sex and Gender Information Value Date Recorded Sex Assigned at Not on file 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
--- OUTSIDE RECORDS SUMMARY | 2025-08-21 14:17 | XMS_ITS | Clinical Summary ---
Author Organization [facility] Address [address] [facility] [place] [facility] Attn: Epic Prelude ADT ANUJ MAURER [address] Care Team Providers Care Warehouse Order Selector Name Role Phone Non-Staff, Physician Primary Care Provider Unava ilable Allergies Active Allergy Reactions Criticality Noted Date Comments Dimenhydrinate Swelling Low 10/14/2021 Medications OTHERIndications :Please send both bottles at same time. Prednisolone 1%, Gatifloxacin 0.5%, Bromfenac 0.07%. Start 3 days before surgery 1 drop in the surgical eye 3 times a day for 24 days. 4 mL 1 1 Active cetirizine (ZyrTEC) 5 mg tablet Take 5 mg by mouth daily. Active carvediloL (COREG) 3.125 mg tablet Take 3.125 mg by mouth 2 times daily. Active omeprazole (PriLOSEC) 20 mg Capsule, Delayed Release(E.C.) Take 20 mg by mouth daily. Active albuterol sulfate 90 mcg/Actuation inhaler Take 2 Puffs by inhalation every 6 hours as needed for Shortness of Breath. Active albuterol (PROVENTIL,ANKITA JOSE ALBERTO) 2.5 mg /3 mL (0.083 %) Solution for Nebulization Take 2.5 mg by inhalation 3 times daily as needed for Shortness of Breath. Active naproxen sodium (ALEVE) 220 mg Tablet Take 220 mg by mouth every 4 hours as needed for Pain, Moderate. Active albuterol sulfate (ProAir HFA) 90 mcg/Actuation inhaler Take 2 Puffs by inhalation every 6 hours as needed . 7 Active raNITIdine (ZANTAC) 300 mg tablet Take 300 mg by mouth 2 times daily as needed . 7 Active aspirin (ECOTRIN EC) 81 mg Tablet, Delayed Release (E.C.) Take 81 mg by mouth daily. 7 Active cetirizine (ZyrTEC) 5 mg tablet Take 5 mg by mouth daily. 7 Active fluticasone propionate (FLONASE) 50 mcg/spray Sherman, Suspension nasal inhaler Administer 1 Sherman in each nostril daily at bedtime . 7 Active HYDROcodone-acet aminophen (NORCO) 7.5-325 mg Tablet Take 1 Tablet by mouth every 4 hours as needed for Pain (or 2 every 6 hours as needed). Max Daily Amount: 6 Tablets 50 Tablet 0 7 Active Active Problems Problem Noted Date Diagnosed Date Cholecystitis 04/12/2017 Immunizations Immunization Administration Dates Next Due Influenza Seasonal Unspecified Formulation IM Social History Tobacco Use Types Packs/Day Years Used Date Smoking Tobacco: Never Smokeless Tobacco: Never Alcohol Use Standard Drinks/Week Comments No 0 (1 standard drink = 0.6 oz pur e alcohol) Comments No Sex and Gender Information Value Date Recorded Sex Assigned at Not on file Legal Sex Female 11:47 AM EMPLOYMENT RECRUITER Gender Identity Not on file Sexual Orientation Not on file Last Filed Vital Signs Vital Sign Reading Time Taken Comments Blood Pressure 104/65 11/24/2021 5:02 PM EMPLOYMENT RECRUITER Pulse 85 11/24/2021 4:53 PM EMPLOYMENT RECRUITER Temperature 36.5 C (97.7 F) 11/24/2021 5:02 PM EMPLOYMENT RECRUITER Respiratory Rate 16 11/24/2021 4:53 PM EMPLOYMENT RECRUITER Oxygen Saturation 97% 11/24/2021 5:02 PM EMPLOYMENT RECRUITER Inhaled Oxygen Concentration - - Weight 61.7 kg (136 lb) 11/24/2021 3:55 PM EMPLOYMENT RECRUITER Height 149.9 cm (4' 11 ) 11/24/2021 3:55 PM EMPLOYMENT RECRUITER Body Mass Index 27.47 11/24/2021 3:55 PM EMPLOYMENT RECRUITER Plan of Treatment Health Maintenance Due Date Last Done Comments DTAP/TDAP/TD VACCINES (1 - Tdap) 1969 BREAST CANCER SCREENING 1990 COLORECTAL SCREENING 1995 Colorectal Cancer Screening 1995 FIT-DNA Q 3 years 1995 FIT/FOBT Q 1 year 1995 Flex Sig/CT Colonography Q 5 years 1995 PNEUMOCOCCAL VACCINE 50+ YEARS (1 of 1 - PCV) 12/15/19 ZOSTER VACCINE (1 of 2) 2000 OSTEOPOROSIS SCREENING 2015 INFLUENZA VACCINE (#1) 2025 07/05/2016 RSV VACCINE (60+ or ) (1 - 1-dose 75+ series) 2025 Medical Devices Implanted Type Area Sr. Strategic Sourcing Manager Device Identifier Shelf Expiration Date Model / Serial / Lot Lens Iol Tecnis Eyhance 24.5 [id number] - [id number] Implanted:Qty: 1 on 10/20/2021 by Fahad Low MD at [facility] Right: Eye [employer] 04/22/2024 [id number] / [id number] / Lens Iol Tecnis Eyhance 24.5 [id number] - [id number] Implanted:Qty: 1 on 11/24/2021 by Fahad Low MD at [facility] Left: Eye [employer] 02/17/2024 [id number] / [id number] / Insurance [place] [address] [place] [place] [address] Advance Directives For more information, please contact: [phone] * Full Code (Latest Code Status on File) Date Activated Date Inactivated Comments 11/24/2021 3:49 PM 11/24/2021 7:21 PM Care Teams Warehouse Order Selector Relationship Specialty Start Date End Date Non-Staff, Physician NO ADDRESS ON FILE PCP - General 03/27/17
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
--- OUTSIDE RECORDS SUMMARY | 2025-08-21 14:17 | XMS_ITS | Encounter Summary ---
Author Organization [facility] Address [address] [place] [address] Care Team Providers Care Faculty Research Assistant Name Role Phone Non-Staff, Physician Primary Care Provider Unava ilable Encounter Details Date Type Department Care Team (Latest Contact Info) Description 10/27/2004 Outpatient Historical [facility] [address] [place] [address] Apurva Lou MD [address] [place] [address] CERVICAL DISC DISPLACMNT (Primary Dx) Social History Tobacco Use Types Packs/Day Years Used Date Smoking Tobacco: Never Assessed Comments Unknown Sex and Gender Information Value Date Recorded Sex Assigned at Not on file 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
--- OUTSIDE RECORDS SUMMARY | 2025-08-21 14:17 | XMS_ITS | Encounter Summary ---
Author Organization [facility] Address [address] [place] [address] Care Team Providers Care Pest Control Technician Name Role Phone Non-Staff, Physician Primary Care Provider Unava ilable Encounter Details Date Type Department Care Team (Latest Contact Info) Description 02/02/2006 Outpatient Historical [address] [phone] Jose R Hackett MD [address] [place] [phone] Dysthymic Disorder (Primary Dx); Bereavement, Uncomplicated Social History Tobacco Use Types Packs/Day Years Used Date Smoking Tobacco: Never Assessed Comments Unknown Sex and Gender Information Value Date Recorded Sex Assigned at Not on file Legal Sex Female 3:15 AM SAMPLE DISTRIBUTOR Gender Identity Not on file Sexual Orientation Not on file documented as of this encounter Plan of Treatment Not on file documented as of this encounter Visit Diagnoses Diagnosis Dysthymic disorder- Primary Bereavement, uncomplicated documented in this encounter Care Teams Pest Control Technician Relationship Specialty Start Date End Date Non-Staff, Physician NO ADDRESS ON FILE PCP - General 03/27/17 documented as of this encounter
--- OUTSIDE RECORDS SUMMARY | 2025-08-21 14:17 | XMS_ITS | Clinical Summary ---
Author Organization [facility] Address [address] [place] [address] Care Team Providers Care Helminthologist Name Role Phone Non-Staff, Physician Primary Care Provider Unava ilable Allergies No known active allergies Medications raNITIdine (ZANTAC) 300 mg tablet Take 300 mg by mouth 2 times daily as needed . 7 Active PROAIR HFA 90 mcg/actuation inhaler Take 2 Puffs by inhalation every 6 hours as needed . 7 Active fluticasone (FLONASE) 50 mcg/spray [place], Suspension Administer 1 [place] in each nostril daily at bedtime . 7 Active cetirizine (ZyrTEC) 5 mg tablet Take 5 mg by mouth daily. Active aspirin (ECOTRIN EC) 81 mg Tablet, Delayed Release (E.C.) Take 81 mg by mouth daily. Active HYDROcodone-pallavi taminophen (NORCO) 7.5-325 mg Tablet Take 1 Tablet by mouth every 4 hours as needed for Pain (or 2 every 6 hours as needed). Max Daily Amount: 6 Tablets 50 Tablet 7 Active Active Problems Problem Noted Date Diagnosed Date Cholecystitis 04/12/2017 Immunizations Immunization Administration Dates Next Due Influenza Seasonal Unspecified Formulation IM Social History Tobacco Use Types Packs/Day Years Used Date Smoking Tobacco: Former Cigarettes Q uit: 04/04/1990 Smokeless Tobacco: Never Alcohol Use Standard Drinks/Week Comments No 0 (1 standard drink = 0.6 oz pur e alcohol) Comments No Sex and Gender Information Value Date Recorded Sex Assigned at Not on file Legal Sex Female 3:15 AM INSTRUMENT MAN Gender Identity Not on file Sexual Orientation Not on file Last Filed Vital Signs Vital Sign Reading Time Taken Comments Blood Pressure 116/59 12/19/2017 10:57 AM INSTRUMENT MAN Pulse 80 04/12/2017 12:10 PM CDT Temperature 36.8 C (98.3 F) 12/19/2017 10:57 AM INSTRUMENT MAN Respiratory Rate 16 12/19/2017 10:57 AM INSTRUMENT MAN Oxygen Saturation 98% 12/19/2017 10:57 AM INSTRUMENT MAN Inhaled Oxygen Concentration - - Weight 67.1 kg (148 lb) 12/19/2017 10:57 AM INSTRUMENT MAN Height 149.9 cm (4' 11 ) 12/19/2017 10:57 AM INSTRUMENT MAN Body Mass Index 29.89 12/19/2017 10:57 AM INSTRUMENT MAN Plan of Treatment Health Maintenance Due Date [...] ) (1 - 1-dose 75+ series) 2025 Insurance MEDICAID [place] PART A [place] B Advance Directives For more information, please contact: [phone] * Full Code (Latest Code Status on File) Date Activated Date Inactivated Comments 04/12/2017 8:09 AM 04/12/2017 2:48 PM * Full Code Date Activated Date Inactivated Comments 04/12/2017 6:48 AM 04/12/2017 8:09 AM * Full Code Date Activated Date Inactivated Comments 04/12/2017 5:12 AM 04/12/2017 6:48 AM Care Teams Helminthologist Relationship Specialty Start Date End Date Non-Staff, Physician NO ADDRESS ON FILE PCP - General 03/27/17
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
--- OUTSIDE RECORDS SUMMARY | 2025-08-21 14:17 | XMS_ITS | Encounter Summary ---
Author Organization [facility] Address [address] [place] [address] Care Team Providers Care Snow Removal Supervisor Name Role Phone Non-Staff, Physician Primary Care Provider Unava ilable Encounter Details Date Type Department Care Team (Late st Contact Info) Description 10/27/2004 Outpatient Historical [facility] [address] 

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
--- NOTE | 2025-08-21 14:27 | ED_ITS ---
HPI - Neuro Symptoms/Deficit 2 General: Chief Complaint: Headache Stated Complaint: H/V Time Seen by Provider: 08/21/25 14:07 History of Present Illness: 74-year-old female presents emergency ro om as a stroke alert. Her initial complaint is nausea and vomiting her dizziness dizziness is worse when she moves her head. She has had this intermittently for some time noting significantly worse around 11:00 today. She also had intermittent vision changes in her left eye that she states has been going on for weeks. Initially she gave a last known well of around 11 AM. She is not on any anticoagulants. Initial NIH evaluation done by myself at the bedside at the time patient arrived. Score of 3 on the NIH scale although the findings are contradictory and that she has right arm and legs ataxia and left upper visual field findings Associated symptoms: Deny chest pain Related Data Home Medications ?Medication ?Instructions ?Recorded ?Confirmed cholecalciferol (vitamin D3) 125 125 mcg PO DAILY 07/2508/21/25 mcg (5,000 unit) tablet (Vitamin D3) Previous Rx's ?Medication ?Instructions ?Recorded meclizine 25 mg tablet 25 mg PO TID PRN dizziness o r 05/12/23 vertigo #30 tabs diclofenac sodium 1 % topical gel 4 g topical QID #100 grams 04/05/24 (Voltaren Arthritis Pain) left economy knee brace #1 ea 04/05/24 albuterol sulfate 2.5 mg/3 mL See Rx Instructions .Rou te 08/07/24 (0.083 %) solution for nebulization .COMPLEX #180 mL albuterol sulfate 90 mcg/actuation 2 inh inhalation Q6 H PRN sob #8.5 11/13/24 aerosol inhaler (Ventolin HFA) grams carvedilol 3.125 mg tablet See Rx Instructions .Route 11/13/24 .COMPLEX #180 tabs budesonide 160 mcg-glycopyr 9 2 inh inhalation BID #10 .7 grams 01/29/25 mcg-formot 4.8 mcg/actuation HFA inhaler (Breztri Aerosphere) ondansetron 8 mg disintegrating 8 mg PO Q8H PRN nausea and 05/15/25 tablet vomiting #20 tabs denosumab 60 mg/mL subcutaneous 60 mg SUBCUT .[id number] #1 mL 05/29/25 syringe (Prolia) pantoprazole 40 mg tablet,delayed See Rx Instructions .Route 06/03/25 release .COMPLEX #90 tabs meloxicam 15 mg tablet See Rx Instructions .Route 0 07/05/25 .COMPLEX #30 tabs aspirin 81 mg tablet,delayed 81 mg PO DAILY #30 tabs 1 release atorvastatin 40 mg tablet (Lipitor) 40 mg PO DAILY #30 tabs 08/21/25 cephalexin 500 mg tablet 500 mg PO TID 7 days #21 tab s 08/21/25 clopidogrel 75 mg tablet 75 mg PO DAILY #30 tabs 07/25 07/18 Allergies Allergy/AdvReac Type Severity Reaction Status Date / Time dimenhydrinate (From Allergy Severe ALGY-Anaphy Verified 07/09/25 12:51 Dramamine) laxis Review of Systems 2 Const: Denies: fever(s) or chills Card: Denies: chest pain Resp: Denies: dyspnea GI: Denies: abdominal pain : Denies: dysuria, urinary frequency or urinary urgency Musc: Denies: neck pain or back pain Skin/Breast: Denies: rash PFSH ED 2 PFSH: Medical History GERD (gastroesophageal reflux disease) DJD (degenerative joint disease) Hypertension Social History Smoking and tobacco/nicotine status: never used tobacco/nicotine Second hand smoke exposure: Yes Alcohol intake: never NIH stroke score 2 NIHSS: Level Of Consciousness - 1a: 0 Level Of Consciousness Questions - 1b: Both Correct Level Of Consciousness Commands - 1c: Both Correct Best Gaze - 2: Normal Visual Becktet - 3: Partial Hemianopia (Left upper visual field) Facial Palsy - 4: Normal Motor Arm Right - 5: No Drift Motor Arm Left - 5: No Drift Motor Leg Right - 6: No Drift Motor Leg Left - 6: No Drift Limb Ataxia - 7: Present In Two Limbs (Right arm and right leg resolved shortly after arrival) Sensory - 8: Normal Best Language - 9: No Aphasia Dysarthia - 10: Normal Extinction And Inattention - 11: 0 Score: Total Score: 3 Physical Exam 2 Const: COMMON NORMALS: no acute distress GENERAL APPEARANCE: cooperative and comfortable ORIENTATION/CONSCIOUSNESS: Yes awake, Yes oriented to person, Yes oriented to place and Yes oriented to time HENMT: COMMON NORMALS: normocephalic, atraumatic and hearing grossly normal bilaterally HEAD & SCALP: normocephalic and atraumatic Resp: COMMON NORMALS: normal respiratory effort, No retractions, No use of accessory muscles and clear to auscultation bilaterally AUSCULTATION: clear to auscultation bilaterally Cardio: COMMON NORMALS: regular rate, regular rhythm and No murmurs present (Cardio) RATE: regular rate RHYTHM: regular rhythm GI: COMMON NORMALS: Soft to palpation and No hepatosplenomegaly present A USCULTATION: Yes normoactive bowel sounds PALPATION: Yes Soft to palpation, No Tenderness to palpation present (GI), No Guarding due to palpation present (GI) and Yes No hepatosplenomegaly present Extremity: COMMON NORMALS: normal to inspection, capillary refill normal, no clubbing, cyanosis or edema, no calf tenderness and no pedal edema Neuro: SENSORIUM/ORIENTATION: Yes oriented to person, Yes oriented to place and Yes oriented to time Skin: COMMON NORMALS: no rashes or lesions noted GENERAL SKIN EXAM: no rashes or lesions noted Course 2 Vital Signs: Vital signs: Vital Signs Pulse Rate 83 08/21/25 16:45 Blood Pressure 133/69 08/21/25 16:45 Pulse Oximetry 95 08/21/25 16:45 MDM - Neuro Symptoms/Deficit Medical Decision Making NIH of 3 but her symptoms are variable. Dr. Tipton evaluated her after I had her ataxia had resolved. She is not having any further symptoms now and after the workup is complete including CT of the head CTA head and neck all of her symptoms are resolved she is ambulated out difficulty she responded well to the Ativan and her dizziness has improved. There is a questionable area in the left frontal lobe she does not have any acute changes discussing with Dr. Tipton and Dr. Cavazos given her presenting symptoms we think this is most likely artifact. Dr. Tipton recommends beginning aspirin Plavix and atorvastatin in the event that this is a TIA although we suspect more based on her presenting symptoms that this was a episode of labyrinthitis. Her ataxia when present was noted on the right side her partial hemianopsia was on the left upper visual field that has resolved as well. Reviewed findings with patient we will discharge her home. Incidental finding of cystitis was treated with Keflex Medical Records I reviewed the patient's medical records. Lab Data I reviewed the patient's lab results. 08/21/25 15:00 08/21/25 15:[address] 08/21/25 14:07 IMPRESSION: 1. No acute intracranial hemorrhage or edema. 2. Very minimal small vessel changes. 3. Remote lacunar infarct RIGHT occipital lobe. Head/Neck CTA 08/21/25 15:18 IMPRESSION: No large vessel stenosis or occlusion. IMPRESSION: No stenosis or occlusion. REFERENCES: NASCET CRITERIA. The degree of stenosis in the cervical segment of the internal carotid artery is based on NASCET criteria. Normal is no stenosis. Mild is less than 50% stenosis. Moderate is 50-69% stenosis. Severe is 70% to 99% stenosis. Total occlusion is no detectable patent lumen. Laboratory Results WBC 15.98 10^3/uL (3.29-11.43) H 08/21/25 15:00 RBC 4.72 10^6/uL (3.85-5.65) 08/21/25 15:00 Hgb 14.10 g/dL (11.27-16.99) 08/21/25 15:00 Hct 43.9 % (36-47) 08/21/25 15:00 MCV 93.0 fl (85-98) 08/21/25 15:00 MCH 29.9 pg (27-33) 08/21/25 15:00 MCHC 32.1 g/dL (30-55) 08/21/25 15:00 RDW 12.9 % (12.1-15.1) 08/21/25 15:00 Plt Count 270 10^3/cmm (157-399) 08/21/25 15:00 MPV 9.3 fL (7.4-10.4) 08/21/25 15:00 Neut % (Auto) 81.4 % 08/21/25 15:00 Lymph % (Auto) 11.5 % 08/21/25 15:00 [place] % (Auto) 4.6 % 08/21/25 15:00 Eos % (Auto) 1.6 % 08/21/25 15:00 Baso % (Auto) 0.6 % 08/21/25 15:00 Neut # (Auto) 13.02 10^3/uL (1.8-7.7) H 08/21/25 15:00 Lymph # (Auto) 1.8 10^3/uL (0.8-4.8) 08/21/25 15:00 Independence # (Auto) 0.7 10^3/uL (0.2-0.9) 08/21/25 15:00 Eos # (Auto) 0.3 10^3/uL (0.0-0.8) 08/21/25 15:00 Baso # (Auto) 0.1 10^3/uL (0.0-0.1) 08/21/25 15:00 Nucleated RBC % (auto) 0 % 08/21/25 15:00 Nucleated RBCs # 0.0 /100WBC 08/21/25 15:00 PT 12.80 SECONDS (12.1-14.9) 08/21/25 14:55 INR 0.90 (0.8-1.2) 08/21/25 14:55 APTT 20.0 SECONDS (23.9-36.7) L 08/21/25 14:55 Sodium 135 mmol/L (136-145) L 08/21/25 15:00 Potassium 4.0 mmol/L (3.5-5.1) 08/21/25 15:00 Chloride 101 mmol/L (98-107) 08/21/25 15:00 Carbon Dioxide 19 mmol/L (22-29) L 08/21/25 15:00 Anion Gap 19.0 (5-19) 08/21/25 15:00 BUN 16 mg/dL (8-23) 08/21/25 15:00 Creatinine 0.9 mg/dL (0.5-0.9) 08/21/25 15:00 GFR Calculation Not Reportable 08/21/25 15:00 Glucose 133 mg/dL (65-115) H 08/21/25 15:00 POC Glucose 127 mg/dL (70-110) H 08/21/25 14:22 Calculated Osmolality 283 mOsm/kg (285-295) L 08/21/25 15:00 Calcium 10.1 mg/dL (8.5-10.5) 08/21/25 15:00 Total Bilirubin 0.7 mg/dL (0.15-1.2) 08/21/25 15:00 AST 15 U/L (0-32) 08/21/25 15:00 ALT 12 U/L (0-33) 08/21/25 15:00 Alkaline Phosphatase 64 U/L (35-105) 08/21/25 15:00 Total Protein 7.7 g/dL (6.6-8.7) 08/21/25 15: Albumin 4.5 g/dL (3.5-5.2) 08/21/25 15: Globulin 3.2 g/dL (1.3-4.6) 08/21/25 15:00 Urine Color Yellow (Yellow) 08/21/25: Urine Appearance Cloudy (CLEAR) A 08/21/25 15: Urine pH 8.5 (5-7) A 08/21/25: Ur Specific [place]ole 1.021 (1.005-1.030) 08/21/25 15: Urine Protein Trace (Negative) A 08/21/25 15: Urine Glucose (UA) Negative (Normal) 08/21/25 15: Urine Ketones 3+ (Negative) H 08/21/25 15: Urine Blood Negative (Negative) 08/21/25: Urine Nitrate Negative (Negative) 08/21/25 15: Urine Bilirubin Negative (Negative) 08/21/25 15: Urine Urobilinogen 1.0 mg/dL (Negative) 08/21/25: Ur Leukocyte Esterase 1+ (Negative) A 08/21/25: Urine RBC 6-10 /hpf (0-2) 08/21/25 15:28 Urine WBC 21-50 /hpf (0-5) H 08/21/25 15:28 Ur Squamous Epith Cells 0-5 /hpf (0-5) 08/21/25 15: Urine Bacteria 4+ /hpf (NONE) H 08/21/25 15: Hyaline Casts 1.65 /lpf 08/21/25 15:28 Urine Opiates Screen Negative ng/mL (Negative) 08/21/25 15:34 Ur Barbiturates Screen Negative ng/mL (Negative) 08/21/25 15:34 Ur Phencyclidine Scrn Negative ng/mL (Negative) 08/21/25 15:34 Ur Amphetamines Screen Negative ng/mL (Negative) 08/21/25 15:34 U Benzodiazepines Scrn Negative ng/mL (Negative) 08/21/25 15:34 Urine Cocaine Screen Negative ng/mL (Negative) 08/21/25 15:34 U Marijuana (THC) Screen Negative ng/mL (Negative) 08/21/25 15:34 All radiology interpretation(s) finalized by discharge Discharge Plan Discharge Patient Disposition: Home Clinical Impression: Labyrinthitis, Cystitis Condition: Stable Prescriptions: New cephalexin 500 mg tablet 500 mg PO TID 7 Days Qty: 21 0RF aspirin 81 mg tablet,delayed release (DR/EC) 81 mg PO DAILY Qty: 30 0RF atorvastatin [Lipitor] 40 mg tablet 40 mg PO DAILY Qty: 30 0RF clopidogrel 75 mg tablet 75 mg PO DAILY Qty: 30 0RF No Action meclizine 25 mg tablet 25 mg PO TID PRN (Reason: dizziness or vertigo) Qty: 30 0RF carvedilol 3.125 mg tablet See Rx Instructions .ROUTE .COMPLEX Qty: 180 1RF Dose Instruction: TAKE ONE TABLET BY MOUTH TWICE DAILY MUST TAKE WITH FOOD/MEAL Rx Instructions: TAKE ONE TABLET BY MOUTH TWICE DAILY MUST TAKE WITH FOOD/MEAL albuterol sulfate [Ventolin HFA] 90 mcg/actuation HFA aerosol inhaler 2 inh inhalation Q6H PRN (Reason: sob) Qty: 8.5 6RF diclofenac sodium [Voltaren Arthritis Pain] 1 % gel 4 g topical QID MDD knee pain Qty: 100 0RF Rx Instructions: apply to single knee, ankle, foot; for foot includes sole/toes/top of foot (DME) left economy knee brace See Rx Instructions .Route .MEDSUPPLY Qty: 1 0RF Rx Instructions: As directed ondansetron 8 mg tablet,disintegrating 8 mg PO Q8H PRN (Reason: nausea and vomiting) Qty: 20 0RF albuterol sulfate 2.5 mg /3 mL (0.083 %) solution for nebulization See Rx Instructions .ROUTE .COMPLEX Qty: 180 11RF Dose Instruction: USE 1 VIAL PER NEBULIZER FOUR TIMES DAILY NEEDED FOR SHORTNESS OF BREATH Rx Instructions: USE 1 VIAL PER NEBULIZER FOUR TIMES DAILY NEEDED FOR SHORTNESS OF BREATH Kaila Aerosphere 160-9-4.8 mcg/actuation HFA aerosol inhaler 2 inh inhalation BID Qty: 10.7 11RF Prolia 60 mg/mL syringe 60 mg SUBCUT .[id number] Qty: 1 1RF pantoprazole 40 mg tablet,delayed release (DR/EC) See Rx Instructions .ROUTE .COMPLEX Qty: 90 1RF Dose Instruction: TAKE ONE TABLET BY MOUTH ONCE DAILY 30 MINUTES TO ONE HOUR PRIOR TO FIRST MEAL OF THE DAY Rx Instructions: TAKE ONE TABLET BY MOUTH ONCE DAILY 30 MINUTES TO ONE HOUR PRIOR TO FIRST MEAL OF THE DAY meloxicam 15 mg tablet See Rx Instructions .ROUTE .COMPLEX Qty: 30 2RF Dose Instruction: TAKE ONE TABLET BY MOUTH ONCE DAILY Rx Instructions: TAKE ONE TABLET BY MOUTH ONCE DAILY cholecalciferol (vitamin D3) [Vitamin D3] 125 mcg (5,000 unit) Tablet 125 mcg PO DAILY Discharge Orders: Discharge ED (Routine); Ordered 08/21/25 Ordered By: Karl Pierre Referrals: Radha Mckenzie NP [Primary Care Provider, Family Practice] Discharge Diet: Usual diet Discharge Activity: Increase activity as tolerated Patient Instructions: Opioid Safety, Pain Management, Patient Portal & Zandra Instructions Activity Restrictions/Additional Instructions: Thank you for choosing [facility] for your healthcare needs today. It is very important that you follow up as instructed or that you return to the Emergency Department should you have concerns or if your condition changes or worsens in any way. Emergency department visits are focused on emergent conditions, in some cases you may require further evaluation on an outpatient basis. You were seen in the emergency room with episodes of dizziness. You were evaluated for stroke including seeing our on-call neurologist Dr. Danuta Allen. After reviewing the films and including the CTA of the head and neck and the plain head CT there is no evidence that you are actively having a stroke. It appears more likely that you are having labyrinthitis symptoms. Incidentally we did find that you had a bladder infection. Dr. Tipton is recommending that we start you on aspirin Plavix and atorvastatin until further evaluation is completed. Will set you up for outpatient MRI and follow-up with neurology. (Please note that included in your discharge packet is information concerning opioid safety and pain management. This information is given to all patients were discharged from the ER regardless of their discharge diagnosis or the medicines they usually take or are prescribed.) Print Language: Greek Coding Level of Care Code ED Placement Director for Nica Dong
[2025-08-21] MEDS: metoclopramide 5 mg/mL SDV 2 mL 10 MG IVP (14:34)
[2025-08-21 15:00] VITALS: BP 126/77; PULSE 75; O2SAT 99
--- NOTE | 2025-08-21 15:07 | PM.SAN ---
Stroke Alert Activation ED Arrival Date: 08/21/25 ED Arrival Time: 14: ED Physican at Bedside: 14:07 Last Known Normal/at Baseline: 3-4 hours ago (Possibly yesterday. She says 11 AM) Other Last Known Well Infomation: 74-year-old woman who was a difficult historian. She was nauseated and vomiting actively when she arrived here and reluctant to speak. She says that yesterday she was out doing her chores when she developed vertigo and started taking my vertigo medicine. She cannot remember who made dinner last night or whether she helped with that. This morning she went out to feed the dogs after she got up and she believes that she was feeling okay then. At 11:00 she developed vertigo again and her medication did not help and she started vomiting. She was having trouble walking. She denies focal weakness or numbness. She is not on any blood thinners. She has never had a CT of the head before. She did see [facility] in October of this year after she had fallen and bumped her head. MRI of the brain was ordered but was not done. When the patient initially arrived she was difficult to examine because she was reluctant to move, still severely nauseated. By the time I arrived the patient was more willing to interact. Stroke Alert Activated by: Triage Stroke Alert Activation Time: 14:07 Stroke MD @ Bedside Time: 14:08 NIH Stroke Scale Time: 14:35 NIH stroke score NIHSS: Level Of Consciousness - 1a: 0 Level Of Consciousness Questions - 1b: Both Correct Level Of Consciousness Commands - 1c: Both Correct Best Gaze - 2: Normal Visual Beckett - 3: Partial Hemianopia (Observed by Dr. Pierre) Facial Palsy - 4: Normal Motor Arm Right - 5: No Drift Motor Arm Left - 5: No Drift Motor Leg Right - 6: No Drift Motor Leg Left - 6: No Drift Limb Ataxia - 7: Absent (Earlier Dr. Pierre thought she had ataxia in the right leg not observed now) Sensory - 8: Normal Best Language - 9: No Aphasia Dysarthia - 10: Normal Extinction And Inattention - 11: 0 Score: Total Score: 1 Stroke Alert Data/Treatment Time to CT of Head: 14:07 CT Impression: She has hyperdensity in the left anterior inferior frontal lobe with decreased attenuation around it and I cannot rule out a small intracranial hemorrhage. Stroke Risk Factors: hypertension tPA Contraindication: tPA Contraindication: Treatment not indcated and Medical contraindication tPA Admin Prior to Arrival: No Patient & Family Educated on: Treament Plan Other Patient & Family Education: Discussed with Dr. Pierre several times. I think that the risk of treatment outweighs the benefit. I would recommend CT angiogram to make sure she is not experiencing basilar artery occlusion. Critical Care Time Critical Care Time: 30 - 74 mins A&P Assessment and plan 1. Vertigo: 74-year-old woman who presents with acute vertigo that severe enough that she is vomiting. This is a concern for posterior circulation ischemia but she has a hyperdensity in the left frontal lobe that is of concern for an intraparenchymal hemorrhage. She had a fall with concussion back in November and MRI brain was planned at that time but not completed. Unfortunately, we cannot know whether this is acute blood in the left frontal lobe or chronic calcification. Her stroke scale score is very low. Dr. Pierre is going to see if she can walk once she is feeling better and not threatening to throw up and I think it is a good idea to go ahead with CTA to make sure she does not have basilar artery occlusion. PDMP PDMP Reviewed: Not Reviewed Coding Level of Care Code Acute Code for Chg Fwd Diagnoses Vertigo R42
[2025-08-21 15:08] LABS: Hematocrit 43.9 % (36-47); Hemoglobin 14.10 g/dL (11.27-16.99); Mean Corpuscular HGB Conc 32.1 g/dL (30-55); Mean Corpuscular Hemoglobin 29.9 pg (27-33); Mean Corpuscular Volume 93.0 fl (85-98); Nucleated Red Blood Cells % 0 %; Platelet Count 270 10^3/cmm (157-399); Red Blood Count 4.72 10^6/uL (3.85-5.65); White Blood Count 15.98 10^3/uL (3.29-11.43)
--- NOTE | 2025-08-21 15:18 | CTR_ITS ---
PROCEDURE INFORMATION: Exam: CTA Head With Contrast, Arteriography Exam date and time: 08/21/2025 3:36 PM Age: 74 years old Clinical indication: Dizziness and giddiness; Additional info: Dizziness/n/v TECHNIQUE: Imaging protocol: Computed tomographic angiography of the head with contrast. Exam focused on the arteries. 3D rendering (Not supervised by radiologist): MIP and/or 3D reconstructed images were created by the technologist. Radiation optimization: All CT scans at this facility use at least one of these dose optimization techniques: automated exposure control; mA and/or kV adjustment per patient size (includes targeted exams where dose is matched to clinical indication); or iterative reconstruction. Contrast material: OMNI 350; Contrast volume: 100 ml; Contrast route: INTRAVENOUS (IV); COMPARISON: CT head thrombolytic [id number] 08/21/2025 2:12 PM RADIATION DOSE METRICS: Total DLP (mGy-cm): 369.31 FINDINGS: ANTERIOR CIRCULATION: Right internal carotid artery: Intracranial segment is patent with no significant stenosis. No aneurysm. Right middle cerebral artery: No occlusion or significant stenosis. No aneurysm. Right anterior cerebral artery: No occlusion or significant stenosis. No aneurysm. Left internal carotid artery: Intracranial segment is patent with no significant stenosis. No aneurysm. Left middle cerebral artery: No occlusion or significant stenosis. No aneurysm. Left anterior cerebral artery: No occlusion or significant stenosis. No aneurysm. POSTERIOR CIRCULATION: Right vertebral artery: No occlusion or significant stenosis. No aneurysm. Left vertebral artery: No occlusion or significant stenosis. No aneurysm. Basilar artery: No occlusion or significant stenosis. No aneurysm. Right posterior cerebral artery: No occlusion or significant stenosis. No aneurysm. Left posterior cerebral artery: No occlusion or significant stenosis. No aneurysm. Brain: No definite mass, mass effect, or midline shift. Cerebral ventricles: No ventriculomegaly. Bones/joints: Unremarkable. No acute fracture. Soft tissues: Unremarkable. PROCEDURE INFORMATION: Exam: CTA Neck With Contrast Exam date and time: 08/21/2025 3:36 PM Age: 74 years old Clinical indication: Dizziness and giddiness; Additional info: Dizziness/n/v TECHNIQUE: Imaging protocol: Computed tomographic angiography of the neck with contrast. Exam focused on the cervical segments of the vasculature. 3D rendering (Not supervised by radiologist): MIP and/or 3D reconstructed images were created by the technologist. Radiation optimization: All CT scans at this facility use at least one of these dose optimization techniques: automated exposure control; mA and/or kV adjustment per patient size (includes targeted exams where dose is matched to clinical indication); or iterative reconstruction. Contrast material: OMNI 350; Contrast volume: 100 ml; Contrast route: INTRAVENOUS (IV); COMPARISON: CT head thrombolytic [id number] 08/21/2025 2:12 PM RADIATION DOSE METRICS: Total DLP (mGy-cm): 369.31 FINDINGS: Right common carotid artery: No stenosis. No dissection or occlusion. Right internal carotid artery: No stenosis of the extracranial segment. No dissection or occlusion. Right external carotid artery: No occlusion or stenosis of the origin. Left common carotid artery: No stenosis. No dissection or occlusion. Left internal carotid artery: No stenosis of the extracranial segment. No dissection or occlusion. Left external carotid artery: No occlusion or stenosis of the origin. Right vertebral artery: No stenosis. No dissection or occlusion. Left vertebral artery: No stenosis. No dissection or occlusion. Soft tissues: Normal. No significant soft tissue swelling. Bones/joints: No acute fracture. CT/CT angio headne* [id number] IMPRESSION: No large vessel stenosis or occlusion. IMPRESSION: No stenosis or occlusion. REFERENCES: NASCET CRITERIA. The degree of stenosis in the cervical segment of the internal carotid artery is based on NASCET criteria. Normal is no stenosis. Mild is less than 50% stenosis. Moderate is 50-69% stenosis. Severe is 70% to 99% stenosis. Total occlusion is no detectable patent lumen.
[2025-08-21 15:23] LABS: INR 0.90 (0.8-1.2); Prothrombin Time 12.80 SECONDS (12.1-14.9)
[2025-08-21 15:24] LABS: Partial Thromboplastin Time 20.0 SECONDS (23.9-36.7)
[2025-08-21 15:30] LABS: Alanine Aminotransferase 12 U/L (0-33); Albumin Level 4.5 g/dL (3.5-5.2); Alkaline Phosphatase 64 U/L (35-105); Anion Gap 19.0 (5-19); Aspartate Amino Transferase 15 U/L (0-32); Blood Urea Nitrogen 16 mg/dL (8-23); Calcium 10.1 mg/dL (8.5-10.5); Carbon Dioxide 19 mmol/L (22-29); Chloride 101 mmol/L (98-107); Globulin 3.2 g/dL (1.3-4.6); Glucose 133 mg/dL (65-115); Osmolality Calculated 283 mOsm/kg (285-295); Potassium 4.0 mmol/L (3.5-5.1); Sodium 135 mmol/L (136-145); Total Protein 7.7 g/dL (6.6-8.7)
[2025-08-21] MEDS: LORazepam 2 mg/mL INJ 1 mL 0.5 MG IVP (15:33)
[2025-08-21 15:48] LABS: Glucose Urine UA Negative (Normal); Nitrate Urine Negative (Negative); Specific Gravity, Urine 1.021 (1.005-1.030)
[2025-08-21 15:55] LABS: Add Urine Microscopic? YES; Universal Test for UA Present (0)
[2025-08-21 15:56] LABS: PCP Screen Urine Negative (Negative)
[2025-08-21] MEDS: iohexol 350 mg/mL 500 mL Btl (per mL) IV (16:19)
[2025-08-21 16:27] LABS: UA Slide Review UA Slide Review Perf
[2025-08-21 16:44] VITALS: BP 146/77; PULSE 87; O2SAT 94
[2025-08-21 16:45] VITALS: BP 133/69; PULSE 83; O2SAT 95
[2025-08-21 17:08] VITALS: BP 127/71; PULSE 87; O2SAT 97
--- NOTE | 2025-08-23 08:21 | DCPLANNER ---
messaged neuro for er f/u and faxed outpatient mri to scheduling
== END 2025-08-21 17:22 | disposition home or self-care (01) ==
PROVIDERS: Emergency Provider Family Medicine; PCP Nurse Practitioner Family
DX: H83.09 Labyrinthitis, unspecified ear (principal); N30.90 Cystitis, unspecified without hematuria; I10 Essential (primary) hypertension
CPT/HCPCS: 36415; 36416; 70450; 70496; 70498; 80053; 80306; 81001; 82962; 85025; 85610; 85730; 87086; 93005; 96374; 96375; 99285; J2060; J2765

== ENCOUNTER 2025-09-30 14:00 | Outpatient (CLI) | payer MEDICARE, MEDICAID, SELFPAY ==
--- NOTE | 2025-09-30 14:04 | MR_ITS ---
WS: [id number] MRI HEAD WITH CONTRAST TECHNIQUE: Sagittal T1, T2 axial, T2 axial FLAIR, axial susceptibility weighted imaging, axial diffusion weighted images, and coronal T2 images were obtained. Pre and post-T1 axial and post T1 coronal images. ADC and FSPGR images. CLINICAL INFORMATION: TIA COMPARISON: None. FINDINGS: No evidence of restricted diffusion to suggest acute ischemia. Ventricular system and basal cisterns are patent. Mild small vessel changes. Moderate parenchymal volume loss. Chronic lacunar infarcts in the cerebellum. Chronic small peripheral cortical infarcts in the RIGHT cerebellum. Normal vascular flow voids at the skull base. No extra-axial fluid collections. Paranasal sinuses and mastoid air cells are well aerated. Normal posterior nasopharynx. No hemosiderin on the susceptibly weighted images. Mild symmetric atrophy temporal lobes and hippocampal formations. Normal optic chiasm and pituitary infundibulum. Benign enhancing venous angioma LEFT frontal lobe with associated gliosis corresponding to the CT findings. No other suspicious findings. MR/MR head wo/w con [id number] IMPRESSION: 1. No evidence of restricted diffusion to suggest acute ischemia. 2. Mild small vessel changes with moderate parenchymal volume loss. 3. Benign enhancing venous angioma in the LEFT frontal lobe with associated gl iosis corresponds to the CT findings. 4. Chronic lacunar infarcts in the cerebellum. A few small cortical infarcts i n the RIGHT cerebellum. 5. No other acute findings.
[2025-09-30] MEDS: gadobenate dimeglumine 20 mL vial 13 ML IV (14:40)
== END 2025-09-30 14:01 | disposition home or self-care (01) ==
LOC: RAD 14:00
PROVIDERS: PCP Nurse Practitioner Family; Visit Provider Family Medicine
DX: G45.0 Vertebro-basilar artery syndrome (principal); D18.02 Hemangioma of intracranial structures; I63.81 Other cerebral infarction due to occlusion or stenosis of small artery; I63.541 Cerebral infarction due to unspecified occlusion or stenosis of right cerebellar artery
CPT/HCPCS: 70553